=== PATIENT | male | born 1995 | race Two or more races ===

== ENCOUNTER 2024-04-15 03:13 | Emergency (ER) | payer SELFPAY ==
[~2024-04-15] VITALS: Ht 177.8 cm; Wt 95.3 kg
[2024-04-15 03:31] VITALS: BP 116/76; TEMP 98.1; O2SAT 96
== END 2024-04-15 05:00 | disposition left against medical advice (07) ==
LOC: ER 03:19
DX: F10.129 Alcohol abuse with intoxication, unspecified (principal); F17.200 Nicotine dependence, unspecified, uncomplicated; Y90.9 Presence of alcohol in blood, level not specified